=== PATIENT | male | born 1940 | race Caucasian/White ===

== ENCOUNTER 2019-07-10 16:28 | Outpatient (REF) | payer SELFPAY ==
[2019-07-10 22:00] LABS: RBC >50 HPF (0-2)
[2019-07-10 22:01] LABS: C & S Indicated? C&S Done As Ordered
== END 2019-07-10 16:48 ==
LOC: NCHCN 16:28
PROVIDERS: Visit Provider Internal Medicine
DX: R31.9 Hematuria, unspecified (principal)
CPT/HCPCS: 81015; 87086

== ENCOUNTER 2019-10-01 10:21 | Outpatient (REF) | payer MEDICARE, SELFPAY ==
[2019-10-01 21:03] LABS: Bilirubin Negative (Negative); Blood Trace-intact (Negative); Clarity Clear (Clear); Glucose >=1000 mg/dL (Negative); Ketones 40 mg/dL (Negative); Leukocyte Esterase Negative (Negative); Nitrite Negative (Negative); Specific Gravity 1.025 (1.005-1.025); Urobilinogen 0.2 EU/dL (Up TO 0.2); pH 5.5 (5-8)
[2019-10-01 21:38] LABS: Bacteria Negative HPF (Negative); C & S Indicated? No; Casts Negative LPF (Negative); Crystals Negative HPF (Negative); Epithelial Cells Negative HPF (Negative); Mucus Negative (Negative); Other Cells Negative (Negative); WBC 0-2 HPF (0-5)
== END 2019-10-01 10:41 ==
LOC: LBN 10:21
PROVIDERS: PCP Internal Medicine; Visit Provider Urology
DX: N20.1 Calculus of ureter (principal)
CPT/HCPCS: 81003; 81015

== ENCOUNTER 2020-05-23 10:33 | Emergency (ER) | payer MEDICARE, SELFPAY ==
[2020-05-23 10:41] VITALS: BP 190/100; PULSE 71; RESP 18; TEMP 36.5; O2SAT 99
--- NOTE | 2020-05-23 10:45 | DI.RAD_ITS ---
EXAM: XR HAND RT COMPLETE CLINICAL HISTORY: fall, 5th pain. TECHNIQUE: 2D digital imaging was performed. COMPARISON: CR XR WRIST RT COMPLETE from 05/23/2020 FINDINGS: There are oblique fracture lines in the 5th metacarpal extending from midshaft to involve the head. In addition, there are fracture lines also evident in the adjacent base and proximal half of the prox imal phalanx of the 5th finger. No other fractures identified. IMPRESSION: Fractures of the 5th metacarpal and adjacent proximal half of the proximal phalanx of the 5th finger. DATA REPOSITORY: RADIATION DOSE DELIVERED:
--- NOTE | 2020-05-23 10:45 | DI.RAD_ITS ---
EXAM: XR WRIST RT COMPLETE CLINICAL HISTORY: fall, pain. TECHNIQUE: 2D digital imaging was performed. COMPARISON: No exams were available for comparison FINDINGS: There fractures it the 5th metacarpal and in the adjacent proximal aspect of the proximal phalanx of the 5th finger. With respect of the wrist, there is a subtle suggestion of a possible nondisplaced fracture of the ra dial styloid. This violates the radiocarpal joint surface. There is no carpal dislocation. Inter o sseous bone distances in the carpal bones is normal. No significant ulnar variance. IMPRESSION: In addition to the 5th metacarpal fractures there also appears to be a suspect probable subtle nondis placed fracture of the distal radius which violates the radiocarpal joint. DATA REPOSITORY: RADIATION DOSE DELIVERED:
--- NOTE | 2020-05-23 10:46 | ED.GENADUL_ITS ---
Discharge Plan Disposition Patient Disposition: HOME Condition: Improving Discharge Details Clinical Impression: Closed fracture of right distal radius, Closed fracture of fifth metacarpal bone, Fracture of finger of right hand Primary Care Provider: Liliana Martínez ED Provider: Sabino Solitario Home Meds and New Rx's Prescriptions: Continued Lantus U-100 Insulin 100 unit/mL solution 10 unit SUBCUT BID RF: 0 levothyroxine 88 mcg tablet 88 mcg PO DAILY RF: 0 insulin lispro [Humalog KwikPen Insulin] 100 unit/mL insulin pen 20 unit SUBCUT DAILY RF: 0 Discharge Instructions Instructions: Finger Fracture (ED), Wrist Fracture in Adults (ED) Additional Instructions: Elevate above the level of the heart to reduce pain and swelling. Sling as needed for comfort. Return for increasing pain, cold/blue/numbness of the fingertips or any other acute concerns. Please follow-up in orthopedic clinic. Your name has been placed on the follow- up list. Please call the office at [phone] for an appointment time. Medical Decision Making 80-year-old male who slipped and fell on a walk on Saturday. Developed right hand and forearm ecchymosis and swelling over days time. Was seen briefly at urgent care and referred to the ER for further work-up. He is otherwise well-appearing and uninjured. Concern for distal radius versus metacarpal fracture the patient referred for x-ray. He was offered but declined oral analgesic. X-rays reveal distal radius fracture that is minimally to nondisplaced and left fifth metacarpal fracture as well as L 5th proximal phalanx. Patient splinted. He will require follow-up in orthopedic clinic. I discussed with him home management as well as indications to seek a reevaluation HPI General Mode of arrival: ambulatory . Date/Time Provider Initiated Documentation: 05/23/20 10:39 . Limitations to Documentation: no limitations . Information obtained by: patient . History of Present Illness 80 year old M presents to the emergency department with the chief complaint of Fall and right hand pain and swelling, described as moderate, Quality is described as dull and constant, and is localized to the right and upper extremity. Patient reports no radiation. Patient started experiencing this day(s) No relieving factors improve symptom(s), No exacerbating factors reported . Patient notes denies chest pain. Patient did receive the following treatments prior to arrival, none Related Data Home Medications Medication Instructions Recorded Confirmed Lantus U-100 Insulin 10 unit SUBCUT BID 05/23/20 05/23/20 insulin lispro [Humalog KwikPen 20 unit SUBCUT DAILY 05/23/20 05/23/20 Insulin] levothyroxine 88 mcg PO DAILY 05/23/20 05/23/20 Allergies Allergy/AdvReac Type Severity Reaction Status Date / Time ciprofloxacin [From Cipro] Allergy Unverified 05/23/20 10:43 General Stated Complaint: Orthopedic SHREYAS: 4 Review of Systems Narrative: 6 systems reviewed and otherwise negative [facility] Social History Smoking/Tobacco Use Status: Never Smoking risk assessment performed?: Yes Alcohol Intake: current Alcohol Intake frequency: 0-2 drinks per day Alcohol type: wine Drug use: Never Substance use type: does not use Do you feel safe at home: Yes Do you feel safe in your relationship?: Yes Exam Narrative Exam Narrative: GEN: awake, alert, oriented 3. Pleasant, well groomed, interactive. HEAD: Normocephalic, atraumatic NECK: Full ROM, no NASRIN, no menigismus CHEST/RESP: Nontender, clear to auscultation bilateral, no wheeze/rhonchi/rales CARDIOVASCULAR: RRR, no murmur, rub rina. 2+ Rad pulse bilateral ABDOMEN: Soft, nontender, no mass. +Bowel sounds EXT: Ecchymosis and swelling to the right distal forearm and ulnar aspect of the hand including the fifth digit. He has previous right hand contractures which he states are unchanged. 2+ radial pulse bilaterally. Distal sensation intact. Right hand range of motion is limited by pain. Neuro: Grossly normal neurologic exam, conversant, interactive. Psych: Speech fluent, thoughts congruent, affect normal Course Vital Signs Vital signs: Vital Signs Temperature 36.5 C 05/23/20 10:41 Pulse 71 05/23/20 10:41 Respiratory Rate 18 05/23/20 10:41 Blood Pressure 190/100 H 05/23/20 10:41 Pulse Oximetry 99 05/23/20 10:41 Temperature 36.5 C 05/23/20 10:41 Temperature Source Skin 05/23/20 10:41 Pulse 71 05/23/20 10:41 Respiratory Rate 18 05/23/20 10:41 Blood Pressure 190/100 H 05/23/20 10:41 Pulse Oximetry 99 05/23/20 10:41 Oxygen Delivery Method Room Air 05/23/20 10:41 Oxygen Flow Rate 0 05/23/20 10:41 Procedures Orthopedic Splinting/Casting Injury #1: Side: right Upper Extremity Injury Location: wrist and hand Upper Extremity Immobilizer: volar splint
== END 2020-05-23 12:09 | disposition home or self-care (01) ==
PROVIDERS: Emergency Provider Emergency Medicine; PCP Internal Medicine
DX: S52.514A Nondisplaced fracture of right radial styloid process, initial encounter for closed fracture (principal); S62.326A Displaced fracture of shaft of fifth metacarpal bone, right hand, initial encounter for closed fracture; S62.616A Displaced fracture of proximal phalanx of right little finger, initial encounter for closed fracture; W00.0XXA Fall on same level due to ice and snow, initial encounter
CPT/HCPCS: 25600; 26600; 26720; 73110; 73130

== ENCOUNTER 2020-06-02 13:11 | Outpatient (CLI) | payer MEDICARE, SELFPAY ==
--- NOTE | 2020-06-02 11:00 | DI.RAD_ITS ---
EXAM: XR WRIST RT COMPLETE CLINICAL HISTORY: follow up. TECHNIQUE: 2D digital imaging was performed. COMPARISON: CR XR HAND RT COMPLETE from 05/23/2020 CR XR HAND RT COMPLETE from 05/23/2020 FINDINGS: There is again noted an oblique fracture in 5th metatarsal involving distal diaphysis as well as the head and neck. There is also mildly displaced fracture of proximal aspect of the proximal phalanx 5t h finger. Appears is unchanged from the prior study. Alignment remains unchanged at both sites. There is also suggestion of a wrist fracture at the level of the distal radius, laterally. This involves the radi ocarpal joint surface. Ulnar styloid is intact. No significant ulnar variance. No carpal dislocati on. IMPRESSION: Three fracture sites remain unchanged in appearance from 05/23/2020. These are in the 5th metacarpal and the adjacent proximal phalanx as well as in the distal radius. DATA REPOSITORY: RADIATION DOSE DELIVERED:
== END 2020-06-02 13:31 ==
PROVIDERS: PCP Internal Medicine; Referring Provider Internal Medicine; Visit Provider Physician Assistant Surgical
DX: S62.336A Displaced fracture of neck of fifth metacarpal bone, right hand, initial encounter for closed fracture (principal); S62.616A Displaced fracture of proximal phalanx of right little finger, initial encounter for closed fracture; S52.591A Other fractures of lower end of right radius, initial encounter for closed fracture; W00.0XXA Fall on same level due to ice and snow, initial encounter
CPT/HCPCS: 99204; 99214; L3984; 73110

== ENCOUNTER 2020-06-30 11:07 | Outpatient (CLI) | payer MEDICARE, SELFPAY ==
--- NOTE | 2020-06-30 11:00 | DI.RAD_ITS ---
EXAM: XR WRIST RT COMPLETE CLINICAL HISTORY: follow up. TECHNIQUE: 2D digital imaging was performed. COMPARISON: No exams were available for comparison FINDINGS: There has been no change in alignment of the fractures involving the lateral aspect of the distal rad ius, the right 5th metacarpal fracture and the fracture involving the proximal phalanx of the right l ittle finger. No new fractures or dislocations. There is soft tissue swelling of the wrist and hand . IMPRESSION: Stable fractures involving the distal radius, the right 5th metacarpal and the proximal phalanx of th e right little finger. DATA REPOSITORY: RADIATION DOSE DELIVERED:
== END 2020-06-30 11:08 | disposition home or self-care (01) ==
LOC: DIORS 11:08
PROVIDERS: PCP Internal Medicine; Referring Provider Internal Medicine; Visit Provider Physician Assistant
DX: S52.591A Other fractures of lower end of right radius, initial encounter for closed fracture (principal); S62.326A Displaced fracture of shaft of fifth metacarpal bone, right hand, initial encounter for closed fracture; S62.616A Displaced fracture of proximal phalanx of right little finger, initial encounter for closed fracture; S52.591D Other fractures of lower end of right radius, subsequent encounter for closed fracture with routine healing; S62.326D Displaced fracture of shaft of fifth metacarpal bone, right hand, subsequent encounter for fracture with routine healing; S62.616D Displaced fracture of proximal phalanx of right little finger, subsequent encounter for fracture with routine healing; X58.XXXD Exposure to other specified factors, subsequent encounter
CPT/HCPCS: 99213; 73110

== ENCOUNTER 2021-06-30 08:29 | Outpatient (CLI) | payer MEDICARE, SELFPAY ==
[2021-06-30 14:31] LABS: Abs Immature Grans 0.03 10^3/uL (0.0-0.06); Absolute Basophil Count 0.07 10^3/uL (0.0-0.2); Absolute Eosinophil Count 0.48 10^3/uL (0.0-0.7); Absolute Lymphocyte Count 1.16 10^3/uL (1.2-3.4); Absolute Monocyte Count 1.32 10^3/uL (0.1-0.8); Basophils % 0.6; Eosinophils % 4.2; HGB 11.5 g/dL (13.5-17.5); Immature Grans % 0.3; Lymphocytes % 10.2; MCH 29.3 pg (27.0-33.0); MCHC 31.1 % (32.0-36.0); MCV 94.1 fL (80-95); MPV 8.5 fL (8.0-11.0); Monocytes % 11.6; Neutrophils % 73.1; Nucleated RBC 0 %; Platelet Count 414 10^3/uL (130-400); RBC 3.93 10^6/uL (4.36-5.78); RDW 13.3 % (11.8-14.1); RDW-SD 46.4 fL; WBC 11.42 10^3/uL (4.4-10.8)
[2021-06-30 14:32] LABS: Absolute Neutrophil Count 8.35 10^3/uL (1.2-6.7)
[2021-06-30 15:37] LABS: Ferritin 280 ng/mL (26-388)
[2021-07-03 11:08] LABS: Transferrin 182 mg/dL (201-352)
[2021-07-03 14:06] LABS: Anti-DNase B Titer 201 U/mL (0 - 300); Antistrep-O Titer 691 IU/mL (0 - 530)
== END 2021-06-30 08:30 | disposition home or self-care (01) ==
PROVIDERS: PCP Internal Medicine; Visit Provider General Practice
DX: L03.114 Cellulitis of left upper limb (principal); B95.4 Other streptococcus as the cause of diseases classified elsewhere
CPT/HCPCS: 36415; 82728; 84466; 85025; 86060; 86215

== ENCOUNTER 2023-09-17 17:45 | Outpatient (REF) | payer MEDICARE, SELFPAY | END 2023-09-17 17:46 | disposition home or self-care (01) | LOC: NCHCN 17:45 | PROVIDERS: PCP Internal Medicine; Visit Provider Family Medicine | DX: N39.0 Urinary tract infection, site not specified (principal) | CPT/HCPCS: 87077; 87086; 87186 ==